=== PATIENT | male | born 1960 | race Caucasian/White ===

== ENCOUNTER 2023-02-28 06:15 | Day surgery (SDC) | payer BC ==
[2023-02-23 12:20] VITALS: BMI 30.2
[2023-02-28] MEDS ORDERED: LIDOCAINE HCL/PF 2% SDV 5ML VIAL ONE (07:22)
[2023-02-28] MEDS ORDERED: MIDAZOLAM HCL 2 MG/2 ML SINGLE DOSE VIAL ONE (07:23)
[2023-02-28] MEDS ORDERED: PROPOFOL 100 ML ONE (07:23)
[2023-02-28] MEDS ORDERED: ROPIVACAINE HCL 0.5% 30ML VIAL ONE (07:35)
[2023-02-28] MEDS ORDERED: BUPIVACAINE LIPOSOME/PF (EXPAREL) 266 MG/20 ML VIAL ONE (07:38)
[2023-02-28] MEDS ORDERED: BUPIVACAINE HCL/PF 0.5% (5MG/ML) 10 ML VIAL ONE ×2 (07:38→07:58)
[2023-02-28] MEDS ORDERED: TRANEXAMIC ACID 1000 MG/10 ML VIAL ONE ×2 (10:12→12:31)
[2023-02-28] MEDS ORDERED: ceFAZolin SODIUM 1 GM VIAL ONE ×2 (10:12→13:35)
[2023-02-28] MEDS ORDERED: VANCOMYCIN 1,000 MG VIAL (RESTRICTED TO ID ONLY) ONE (10:12)
[2023-02-28] MEDS ORDERED: DEXAMETHASONE SOD PHOSPHATE 4 MG/1 ML VIAL ONE (10:24)
[2023-02-28] MEDS ORDERED: HYDROmorphone HCL/PF 1 MG/ML VIAL ONE (11:42)
[2023-02-28] MEDS ORDERED: KETOROLAC TROMETHAMINE 30 MG/1 ML VIAL ONE ×2 (13:15→14:04)
[2023-02-28] MEDS ORDERED: ONDANSETRON 4 MG/2 ML VIAL ONE (13:15)
[2023-02-28] MEDS ORDERED: PROMETHAZINE HCL 25 MG/1 ML VIAL IVPB PRN (14:03)
[2023-02-28] MEDS ORDERED: oxyCODONE HCL 5 MG TABLET PO PRN (14:03)
[2023-02-28] MEDS ORDERED: ONDANSETRON 4 MG/2 ML VIAL IVPUSH PRN ×2 (14:03→20:05)
[2023-02-28] MEDS ORDERED: FENTANYL CITRATE/PF 50 MCG/ML VIAL ONE ×2 (14:04→14:09)
[2023-02-28] MEDS: ACETAMINOPHEN 1000 MG/100 ML BAG IVPB ONE ×2 (14:05→16:24)
[2023-02-28] MEDS ORDERED: LACTATED RINGERS SOLUTION 1,000 ML IV SCH ×2 (14:15→14:45)
[2023-02-28] MEDS ORDERED: MAG HYDROX/AL HYDROX/SIMETH 30 ML UNIT-DOSE CUP PO PRN (14:43)
[2023-02-28] MEDS ORDERED: MAGNESIUM HYDROX 2400MG/30ML ORAL SUSPENSION 30 ML CUP PO PRN (14:43)
[2023-02-28] MEDS ORDERED: oxyCODONE HCL 5 MG TABLET ONE (15:02)
[2023-02-28] MEDS: CEFAZOLIN SODIUM 2 GM in DEXTROSE 5%-WATER 100 ML IVPB SCH (17:24)
[2023-02-28] MEDS: oxyCODONE HCL 5 MG TABLET PO PRN ×2 (17:25→22:15)
[2023-02-28] MEDS: ASCORBIC ACID 500 MG TABLET (FP) PO SCH (21:38)
[2023-02-28] MEDS: CELECOXIB 200 MG CAPSULE PO SCH (21:39)
[2023-02-28] MEDS: GABAPENTIN 300 MG CAPSULE PO SCH (21:39)
[2023-02-28] MEDS: ASPIRIN COATED 81 MG TABLET.EC PO SCH (21:39)
[2023-02-28] MEDS: DEXAMETHASONE 4 MG TABLET (FP) PO SCH (21:39)
[2023-02-28] MEDS: SENNOSIDES/DOCUSATE COMBO (SENNA PLUS) TABLET (UD) PO SCH (21:43)
[2023-02-28] MEDS: ACETAMINOPHEN 500 MG TABLET (FP) PO SCH (22:16)
[2023-03-01] MEDS: CEFAZOLIN SODIUM 2 GM in DEXTROSE 5%-WATER 100 ML IVPB SCH ×2 (01:02→06:21)
[2023-03-01] MEDS: ACETAMINOPHEN 500 MG TABLET (FP) PO SCH ×3 (06:20→16:51)
[2023-03-01] MEDS: oxyCODONE HCL 5 MG TABLET PO PRN ×5 (06:21→21:48)
[2023-03-01 09:10] LABS: HEMATOCRIT 42.2 % (35.4-49); HEMOGLOBIN 14.2 G/dL (11.7-16.9); MCH 34.3 pg (25.7-33.7); MCHC 33.7 g/dl (32.0-35.9); MEAN CELL VOLUME 101.8 fl (80-96); MEAN PLT VOLUME 9.2 fl (7.5-11.1); PLATELET COUNT 150.2 10^3/uL (134-434); RBC 4.15 10^6/uL (4.00-5.60); WHITE BLOOD COUNT 12.1 10^3/uL (4.0-10.8)
[2023-03-01] MEDS: SENNOSIDES/DOCUSATE COMBO (SENNA PLUS) TABLET (UD) PO SCH ×2 (09:16→21:51)
[2023-03-01] MEDS: PANTOPRAZOLE 40 MG TABLET PO SCH (09:16)
[2023-03-01] MEDS: ASCORBIC ACID 500 MG TABLET (FP) PO SCH ×2 (09:16→21:49)
[2023-03-01] MEDS: GABAPENTIN 300 MG CAPSULE PO SCH ×2 (09:16→21:50)
[2023-03-01] MEDS: CELECOXIB 200 MG CAPSULE PO SCH ×2 (09:16→21:50)
[2023-03-01] MEDS: ASPIRIN COATED 81 MG TABLET.EC PO SCH ×2 (09:16→21:50)
[2023-03-01] MEDS: DEXAMETHASONE 4 MG TABLET (FP) PO SCH ×2 (09:16→21:51)
[2023-03-01 09:24] LABS: CALCIUM 8.3 mg/dl (8.5-10.1); CREATININE 0.7 mg/dl (0.6-1.3)
[2023-03-01] MEDS: FOLIC ACID 1 MG TABLET (FP) PO SCH (11:03)
[2023-03-01] MEDS: THIAMINE HCL 100 MG TABLET (FP) PO SCH (11:03)
[2023-03-02 03:15] VITALS: RESP 18
[2023-03-02] MEDS: ACETAMINOPHEN 500 MG TABLET (FP) PO SCH ×2 (06:16→10:53)
[2023-03-02] MEDS: oxyCODONE HCL 5 MG TABLET PO PRN ×2 (06:31→10:55)
[2023-03-02 08:49] LABS: ALBUMIN 3.4 g/dl (3.4-5.0); BILIRUBIN,TOTAL 1.3 mg/dl (0.2-1); CALCIUM 8.6 mg/dl (8.5-10.1); CREATININE 0.6 mg/dl (0.6-1.3); POTASSIUM 4.3 mmol/L (3.5-5.1)
[2023-03-02 10:14] LABS: BASO % 0.1 % (0-2.0); EOS % 0.1 % (0-4.5); HEMATOCRIT 41.2 % (35.4-49); HEMOGLOBIN 14.1 GM/dL (11.7-16.9); LYMPH % 8.6 % (8-40); MCHC 34.2 g/dl (32.0-35.9); MEAN CELL VOLUME 99.4 fl (80-96); MEAN PLT VOLUME 9.5 fl (7.5-11.1); MONO % 9.8 % (3.8-10.2); NEUT % 81.4 % (42.8-82.8); PLATELET COUNT 158 10^3/uL (134-434); RBC 4.15 M/mm3 (4.00-5.60); RDW 13.3 % (11.9-15.9); WHITE BLOOD COUNT 14.5 K/mm3 (4.0-10.0)
[2023-03-02 10:15] VITALS: BP 136/96; PULSE 86; TEMP 98.2
[2023-03-02] MEDS: GABAPENTIN 300 MG CAPSULE PO SCH (10:52)
[2023-03-02] MEDS: SENNOSIDES/DOCUSATE COMBO (SENNA PLUS) TABLET (UD) PO SCH (10:53)
[2023-03-02] MEDS: DEXAMETHASONE 4 MG TABLET (FP) PO SCH (10:53)
[2023-03-02] MEDS: ASPIRIN COATED 81 MG TABLET.EC PO SCH (10:53)
[2023-03-02] MEDS: ASCORBIC ACID 500 MG TABLET (FP) PO SCH (10:54)
[2023-03-02] MEDS: THIAMINE HCL 100 MG TABLET (FP) PO SCH (10:54)
[2023-03-02] MEDS: CELECOXIB 200 MG CAPSULE PO SCH (10:55)
[2023-03-02] MEDS: FOLIC ACID 1 MG TABLET (FP) PO SCH (10:55)
[2023-03-02] MEDS: PANTOPRAZOLE 40 MG TABLET PO SCH (10:55)
== END 2023-03-02 15:28 | disposition home or self-care (01) ==
LOC: FASU 06:15 → FM/S 15:39 → FASU 03-02 15:28
PROVIDERS: ATTEND Orthopaedic Surgery Adult Reconstructive Orthopaedic Surgery
PROC: 0MNP0ZZ Release Left Knee Bursa and Ligament, Open Approach (ICD-10-PCS; 2023-02-28)
PROC: 0SRD0J9 Replacement of Left Knee Joint with Synthetic Substitute, Cemented, Open Approach (ICD-10-PCS; principal; 2023-02-28 10:59)
DX: M17.12 Unilateral primary osteoarthritis, left knee (principal)
CPT/HCPCS: 27425; 27447; C1776; 36415; 73560-TC-LT-FY; 80048; 80053; 85025; 85027; 88305-TC; 88311-TC; 94760; 97010-GP; 97116-GP; 97162-GP; C1713; C1889